=== PATIENT | female | born 2000 | race Asian ===

== ENCOUNTER 2025-05-22 22:35 | Emergency (ER) | payer OTHER, SELFPAY ==
[2025-05-22 22:43] VITALS: BP 115/80; PULSE 80; RESP 16; TEMP 36.4; O2SAT 98; BMI 19.1
--- NOTE | 2025-05-22 23:05 | PC.NURSE ---
woke up with rash Wednesday morning, nothing ingested out of the normal. 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 Wednesday continued to itch, took benadry the past three nights and has used topical hydrocortisone on this. Took Benadryl last at 8 pm tonight, hard to tell if Benadryl has helped with itch but rash has not gone down. Markings made by pt today around wounds to monitor spread. py allergic to shelfish and cypro.
[2025-05-22 23:11] VITALS: BP 115/80; PULSE 80; RESP 16; TEMP 36.4; O2SAT 98
--- NOTE | 2025-05-23 00:53 | ED.SKABFB ---
HPI - Skin/Abscess/Foreign Bdy General Chief complaint: Skin/Abscess/Foreign Body Stated complaint: left forearm rash also on chest/stomach Time Seen by Provider: 05/23/25 00:28 Source: patient Mode of arrival: ambulatory Limitations: no limitations History of Present Illness ED Provider: MORENO ARAUZ narrative: 24 yo female healthy here with c/o itching rash on chest, abdomen and L arm - unclear cause. She has no fevers, L arm more swollen and red - she has never had this before and cannot think of what happened. itchy and now L arm slightly more painful . started Wednesday Onset (ago): day(s) (Wednesday) Location: chest and LUE Severity: moderate Quality: pruritic Pain Consistency: constant Relieving factors: none Exacerbating factors: none Context: none Associated symptoms: denies other symptoms Treatments prior to arrival: none Related Data Previous Rx's ?Medication ?Instructions ?Recorded cephalexin 500 mg capsule 500 mg PO QID 5 days #20 caps 05/23/25 mupirocin 2 % topical ointment 1 appl topical BID 7 days #15 grams 05/23/25 prednisone 20 mg tablet 40 mg (2 x 20 mg) PO DAILY 3 days 05/23/25 #6 tabs Allergies Allergy/AdvReac Type Severity Reaction Status Date / Time ciprofloxacin (From Cipro) Allergy Hives Verified 05/22/25 22:45 shellfish derived (shellfish) AdvReac Anaphylaxis Verified 05/22/25 22:45 Review of Systems Review of Systems: Constitutional : No Fever, No Chills ENT/Mouth : No sore throat, No Rhinorrhea Eyes: No Eye Pain, No Swelling, No Redness Cardiovascular : No Chest Pain, No SOB Respiratory : No Cough, No Sputum Gastrointestinal : No Nausea, No Vomiting, No Diarrhea, No abdominal Pain Genitourinary : No Dysuria, No Hematuria Musculoskeletal : No joint pain, No Myalgias, No Joint Swelling Skin : pos Skin Lesions, positive skin rash All other systems reviewed and are negative PMFSH Past Medical History Attestation statement: The following information was validated with the patient. Source: old records reviewed Medical History No pertinent past medical history Social History Social History (Updated 05/23/25 @ 00:56 by Carito Severino DO) Patient Tobacco Use Status: Never used Tobacco Physical Exam Vital Signs: Vital Signs: Last Vital Signs Temp 97.5 F 05/22/25 23:11 Pulse 80 05/22/25 23:11 Resp 16 05/22/25 23:11 BP 115/80 05/22/25 23:11 Pulse Ox 98 05/22/25 23:11 O2 Del Method Room Air 05/22/25 23:11 BMI result Body Mass Index 19.1 Appearance: Alert. Oriented X3. No acute distress. Eyes: Pupils equal, round and reactive to light. ENT: Pharynx normal. Neck: Normal inspection. Neck supple. CVS: Normal heart rate and rhythm. Pulses normal. Respiratory: No respiratory distress. Breath sounds normal. Abdomen: Soft and nontender. Skin: Skin warm and dry. Normal skin color. Normal skin turgor. Extremities: No lower extremity edema. L arm reddened areas with warmth and some scaling areas no abscess, chest there is excoriated red raised patch, L abdomen circular patch noted with scaling no infection Neuro: Oriented X 3. No motor deficit. No sensory deficit. CN2-12 intact Medical Decision Making Medical Decision Making MDM Narrative: 24 yo female with pruritic rash but no signs of angioedema at this time will start on mupirocin, prednisone for allergy and then cephalexin for L arm - she has no signs of abscess or systemic infection Differential Diagnosis Differential Diagnoses: The differential diagnosis associated with the presentation includes dermatitis, cellulitis Admission/Observation Consideration of admission/observation: Escalation of care including admission/observation considered no systemic symptoms stable for DC Prescription Management I considered prescription management with: Antibiotic and Other Discharge Plan Discharge Clinical Impression: Cellulitis Qualifiers: Site of cellulitis: extremity Site of cellulitis of extremity: upper extremity Laterality: left Qualified Code(s): L03.114 - Cellulitis of left upper limb Contact dermatitis Qualifiers: Contact dermatitis type: unspecified Contact dermatitis trigger: unspecified trigger Qualified Code(s): L25.9 - Unspecified contact dermatitis, unspecified cause Patient Disposition: Home, Self-Care Instructions: Contact Dermatitis (DC), Cellulitis (ED) Additional Instructions: return for worsening redness, fevers, no improvement in 48 hours or any other concerns take a probiotic with antibiotics take prednisone on full stomach keep areas clean and dry - cover if you worry they will become contaminated On a cephalosporin?antibiotic, softer bowel movements are to be expected. Call your provider if you move your bowels more than 4 times a day, your bowel movements are almost all liquid, or you get a rash.?? Prescriptions: New prednisone 20 mg tablet 40 mg PO DAILY 3 Days Qty: 6 0RF cephalexin 500 mg capsule 500 mg PO QID 5 Days Qty: 20 0RF mupirocin 2 % ointment 1 appl topical BID 7 Days Qty: 15 0RF Print Language: Georgian
[2025-05-23 01:20] VITALS: BP 90/51; PULSE 62; RESP 16; TEMP 36.4; O2SAT 100
== END 2025-05-23 01:22 | disposition home or self-care (01) ==
PROVIDERS: Emergency Provider Emergency Medicine; PCP Family Medicine
DX: L03.114 Cellulitis of left upper limb (principal); L25.9 Unspecified contact dermatitis, unspecified cause
CPT/HCPCS: 99283; 99284